=== PATIENT | male | born 1960 | race Caucasian/White ===

== ENCOUNTER 2020-11-10 04:22 | Day surgery (SDC) | payer OTHER ==
[2020-11-09 12:08] VITALS: BMI 28.3
[2020-11-10] MEDS ORDERED: ACETAMINOPHEN 325 MG TABLET (FP) ONE (10:01)
[2020-11-10] MEDS ORDERED: ACETAMINOPHEN 325 MG TABLET (FP) PO ONE (10:05)
[2020-11-10] MEDS ORDERED: MIDAZOLAM HCL 2 MG/2 ML SINGLE DOSE VIAL ONE ×3 (11:02→11:14)
[2020-11-10] MEDS ORDERED: oxyCODONE HCL 5 MG TABLET PO PRN ×4 (12:23→17:47)
[2020-11-10] MEDS ORDERED: DEXTROSE 5%-0.45% SALINE 1,000 ML IV SCH ×2 (12:30→17:45)
[2020-11-10] MEDS ORDERED: ONDANSETRON 4 MG/2 ML VIAL IVPUSH PRN (16:43)
[2020-11-10] MEDS ORDERED: PROMETHAZINE HCL 25 MG/1 ML VIAL IVPUSH PRN (16:43)
[2020-11-10] MEDS ORDERED: LACTATED RINGERS SOLUTION 1,000 ML IV SCH (16:45)
[2020-11-10] MEDS ORDERED: AMINOCAPROIC ACID 5 GM/20 ML VIAL IVPB ONE (17:51)
[2020-11-10] MEDS ORDERED: AMINOCAPROIC ACID IVPB ONE ×2 (19:45→21:00)
[2020-11-10] MEDS ORDERED: WATER IVPB ONE ×2 (19:45→21:00)
[2020-11-10] MEDS ORDERED: DEXTROSE 5% IVPB ONE ×2 (19:45→21:00)
[2020-11-11] MEDS ORDERED: VITAMINS A AND D TOPICAL OINTMENT 60 GM TUBE TP PRN (09:13)
[2020-11-11] MEDS ORDERED: ACETAMINOPHEN 325 MG TABLET (FP) PO PRN (09:18)
[2020-11-11 15:06] VITALS: BP 120/72; PULSE 84; TEMP 98.3
== END 2020-11-11 14:21 | disposition home or self-care (01) ==
LOC: JASU-SURG 04:22 → J8W 23:10 → JASU-SURG 11-11 14:21
PROVIDERS: ATTEND Urology
PROC: 0VT08ZZ Resection of Prostate, Via Natural or Artificial Opening Endoscopic (ICD-10-PCS; principal; 2020-11-10 11:00)
DX: N40.1 Benign prostatic hyperplasia with lower urinary tract symptoms (principal); R33.8 Other retention of urine
CPT/HCPCS: 88305-TC; 94760